=== PATIENT | male | born 2000 | race Caucasian/White ===

== ENCOUNTER → 2021-04-02 11:02 | Outpatient (CLI) | payer OTHER, SELFPAY ==
--- NOTE | 2021-04-02 | DI.RAD.S_ITS ---
PROCEDURE: FL SHOULDER INJECTION MR/CT LT INDICATIONS: subluxation of left shoulder joint COMPARISON: None. TECHNIQUE: The indications, alternatives, benefits, risks, and complications of the procedure were explained to the patient. Written informed consent was obtained and placed in the chart. The shoulder was examined fluoroscopically and a site for needle placement chosen for entry into the glenohumeral joint from an anterior approach. The skin was prepped and draped in a sterile fashion, and 1% lidocaine infiltrated from skin down to joint capsule. A spinal needle was inserted into the glenohumeral joint, and a small amount of iodinated contrast media injected to confirm intra-articular placement of the needle tip. This was followed by approximately 12 mL dilute solution of a gadolinium containing MR contrast agent. The needle was removed and a dressing was applied. The patient was given postprocedural instructions and sent to the MR suite for MR imaging. FINDINGS: A single fluoroscopic spot image demonstrates intra-articular location of injected iodinated contrast. IMPRESSION: Successful fluoroscopically guided administration of dilute Gadolinium solution into the shoulder joint for MR arthrogram. Dictated by: Braulio Lopez M.D. on 04/02/2021 at 12:03 Approved by: Braulio Lopez M.D. on 04/02/2021 at 12:04
--- NOTE | 2021-04-02 | DI.MRI.S_ITS ---
PROCEDURE: MR SHOULDER LT W CON INDICATIONS: subluxation of left shoulder joint TECHNIQUE: After the administration of 12 mL of dilute intra-articular Gadolinium contrast, oblique coronal T1 and T2 spin echo with fat saturation, oblique sagittal T1 spin echo with and without fat saturation, oblique sagittal T2 fast spin echo with fat saturation, axial T1 spin echo with fat saturation through the shoulder. COMPARISON: None. FINDINGS: Rotator cuff: Supraspinatus, infraspinatus and teres minor tendons appear intact. Subscapularis tendon appears intact. No muscle atrophy identified. Bones and bursae: Small Hill-Sachs fracture deformity is seen with adjacent marrow edema. The anterior inferior glenoid appears grossly intact. No acromioclavicular joint degeneration. Acromion demonstrates conventional anatomy, without an os acromiale. No subacromial-subdeltoid bursitis. Capsule and soft tissues: Labrum: No definite intrasubstance gadolinium signal intensity within the labrum. The anteroinferior, and remainder of the labrum, appear grossly intact. Glenohumeral ligaments: Inferior and superior glenohumeral ligaments are intact. Biceps tendon: Long head of the biceps tendon intact. Rotator interval: Normal signal intensity. Coracohumeral ligament: Intact. IMPRESSION: No rotator cuff tear Small Hill-Sachs fracture deformity with associated marrow edema suggesting previous anterior shoulder dislocation. The anterior inferior glenoid and labrum appears grossly intact. Dictated by: Adeel Gifford M.D. on 04/02/2021 at 12:51 Approved by: Adeel Gifford M.D. on 04/02/2021 at 12:55
== END ==
DX: S43.002A Unspecified subluxation of left shoulder joint, initial encounter (principal); S42.292A Other displaced fracture of upper end of left humerus, initial encounter for closed fracture
CPT/HCPCS: 23350; 73222; 77002